=== PATIENT | female | born 1945 | race Caucasian/White ===

== ENCOUNTER 2019-05-30 11:23 | Inpatient (IN) | payer OTHER, BC ==
[~2019-05-30] VITALS: Ht 157.5 cm; Wt 62.6 kg
--- NOTE | 2019-05-30 11:23 | NUR ---
Patient BIBA BLS, transferred to bed 7. RN evaluating patient at bedside.
[2019-05-30 11:25] VITALS: BP 180/100
--- NOTE | 2019-05-30 11:39 | NUR ---
PT BIBA FROM URGENT CARE DUE TO BUE AND BLE TREMORS ALONG WITH GENERALIZED WEAKNESS. BS 131 AT THIS TIME. DENIES CP OR SOB. ABD DISTENDED, FIRM, PT STATES "I NEED DRAINAGE SOON". VSS. ER TO SEE PT. MEDHX:CIRRHOSIS, DM
--- NOTE | 2019-05-30 12:20 | NUR ---
Dr. Astudillo is evaluating the patient at bedside.
[2019-05-30 12:39] LABS: BASOPHILS # (AUTO) 0.1 K/uL (0.00-0.22); BASOPHILS % (AUTO) 1.1 % (0.0-2.0); EOSINOPHILS # (AUTO) 0.2 K/uL (0-0.4); HEMATOCRIT 38.3 % (36-48); HEMOGLOBIN 12.4 g/dL (12.0-16.0); LYMPHOCYTES # (AUTO) 0.9 K/uL (2.5-16.5); LYMPHOCYTES % (AUTO) 20.6 % (20.5-51.1); MEAN CORPUSCULAR HEMOGLOBIN 31 pg (27-31); MEAN CORPUSCULAR HGB CONC 33 g/dL (33-37); MEAN CORPUSCULAR VOLUME 96.7 fL (80-94); MONOCYTES # (AUTO) 0.6 K/uL (0.8-1.0); MONOCYTES % (AUTO) 13.6 % (1.7-9.3); NEUTROPHILS # (AUTO) 2.8 K/uL (1.8-7.7); NEUTROPHILS % (AUTO) 60.7 % (42.2-75.2); PLATELET COUNT (AUTO) 114 K/uL (140-450); RED BLOOD CELL COUNT(AUTO) 3.96 MIL/uL (4.20-5.40); RED CELL DISTRIBUTION WIDTH 15.7 % (11.6-13.7); WHITE BLOOD COUNT (AUTO) 4.6 K/uL (4.8-10.8)
[2019-05-30 12:58] LABS: ALBUMIN 1.8 g/dL (3.4-5.0); ASPARTATE AMINOTRANSFERASE 26 U/L (15-37); CHLORIDE 104 mmol/L (98-107); CREATININE 1.1 mg/dL (0.6-1.3); GLUCOSE 116 mg/dL (74-106); POTASSIUM 3.8 mmol/L (3.5-5.1); SODIUM SERUM 137 mmol/L (136-145); TOTAL BILIRUBIN 1.8 mg/dL (0.0-1.0); UREA NITROGEN, BLOOD 15 mg/dL (7-18)
[2019-05-30 13:15] LABS: ANION GAP 6.8 (8-16)
--- NOTE | 2019-05-30 13:30 | NUR ---
Dr. Astudillo is re-evaluating the patient at bedside.
[2019-05-30] MEDS ORDERED: LACTULOSE 20 GM/30 ML UDC PO ONE (13:35)
--- NOTE | 2019-05-30 16:00 | NUR ---
PT RESTING IN BED, AROUSABLE TO NAME, AAOX4, DAUGHTER AT BEDSIDE, VSS, PT DAUGHTER GOING TO ASSIST PT TO RESTROOM.
--- NOTE | 2019-05-30 16:47 | NUR ---
PT DAUGHTER BROUGHT DINNER FOR PT, PER DENIS SANZ OKAY TO EAT.
--- NOTE | 2019-05-30 19:19 | NUR ---
GAVE REPORT TO JOE SANCHEZ
[2019-05-30] MEDS ORDERED: NACL 0.9% 1,000 ML IV SCH (19:44)
[2019-05-30] MEDS ORDERED: ZOLPIDEM 5 MG TAB PO PRN (19:45)
[2019-05-30] MEDS ORDERED: MORPHINE SULFATE 2 MG/ML SYR IVP PRN (19:45)
[2019-05-30] MEDS ORDERED: ONDANSETRON 4 MG/2 ML VIAL IM/IVP PRN (19:45)
[2019-05-30] MEDS ORDERED: ACETAMINOPHEN 325 MG TAB PO PRN (19:45)
[2019-05-30] MEDS ORDERED: HYDROcodone/APAP 5/325 MG 1 TAB TAB PO PRN (19:45)
[2019-05-30] MEDS ORDERED: LORazepam 2 MG/ML VIAL IM/IVP PRN (19:45)
[2019-05-30] MEDS ORDERED: DOCUSATE SODIUM 100 MG GELCAP PO PRN (19:45)
--- NOTE | 2019-05-30 20:16 | NUR ---
Patient will be admitted to care of [facility]. Admited to TELE. Will go to room 107A. Belongings list completed. Report to ARIEL SANCHEZ.
[2019-05-30 20:30] VITALS: BP 122/70
--- NOTE | 2019-05-30 20:30 | NUR ---
RECIEVED PT / THELMA , FROM ER , WITH CC OF TREMORS , BODY WEAKNESS , AAO X4 , TRANSFER TO BED BY 4 PERSON BY MANUAL LIFT , IV SITE INTACT AND PATENT , ADMISSION ASSESSMENT DONE , SKIN INTACT , WITH HX OF BREAST CA , PLAN OF CARE DISCUSSED AND VERBALIZE UNDERSTANDING - CALL LIGHT WITHIN REACH . FALL RISK - ON SAFETY / FALL PRECAUTION PROTOCOL- BED ALARM ON . MRSA SPECIMEN COLLECTED AND SENT TO LAB. WILL CONT. TO MONITOR
[2019-05-30] MEDS ORDERED: DEXTROSE 50% 50 ML SYR IVP PRN (21:05)
[2019-05-30] MEDS ORDERED: INSULIN LISPRO SLIDING SCALE 100 UNITS/ML VIAL SUBQ PRN (21:05)
[2019-05-30 21:59] LABS: MAGNESIUM 1.5 mg/dL (1.8-2.4); PHOSPHORUS 3.1 mg/dL (2.5-4.9); THYROID STIMULATING HORMONE 3.48 uIU/mL (0.34-3.74)
[2019-05-30 22:02] LABS: PROTHROMBIN TIME 14.6 secs (10.8-13.4)
[2019-05-30] MEDS: BLOOD GLUCOSE MONITORING 1 DEV DEV FS SCH (22:09)
[2019-05-30] MEDS ORDERED: SPIR50TA PO (22:42)
[2019-05-30] MEDS ORDERED: FURO-572 PO (22:42)
[2019-05-30] MEDS ORDERED: DOCU-299 PO (22:42)
[2019-05-30] MEDS ORDERED: PROP20TA29 PO (22:42)
[2019-05-30] MEDS ORDERED: LORA10TA19 PO (22:42)
[2019-05-30] MEDS ORDERED: OMEP40EC24 PO (22:42)
[2019-05-30] MEDS ORDERED: EXEM25TA5 PO (22:42)
[2019-05-30] MEDS ORDERED: PROPRANOLOL 20 MG TAB PO SCH (23:00)
[2019-05-30] MEDS ORDERED: SPIRONOLACTONE 50 MG TAB PO SCH (23:00)
[2019-05-31] VITALS: BP 125/60
--- NOTE | 2019-05-31 | NUR ---
STRAIGHT CATH.-DONE ORDERED - PROCEDURE TOLERATED WELL - SPECIMEN SENT TO LAB.
[2019-05-31 00:44] LABS: APPEARANCE,URINE CLEAR (CLEAR); BILIRUBIN,URINE NEGATIVE (NEGATIVE); BLOOD, URINE NEGATIVE (NEGATIVE); COLOR,URINE DARK YELLOW (YELLOW); LEUKOCYTE ESTERASE ,URINE NEGATIVE (NEGATIVE); NITRITE, URINE NEGATIVE (NEGATIVE); PH,URINE 5.5 (5.0-9.0); UGLUCOSE TRACE (NEGATIVE)
[2019-05-31 01:55] LABS: RBC,URINE 0-5 /HPF (0-5); WBC,URINE 0-5 /HPF (0-5)
[2019-05-31 01:56] LABS: HYALINE CASTS, URINE 0-10 /LPF (None Seen)
[2019-05-31] MEDS ORDERED: LORA10TA19 PO (03:02)
[2019-05-31] MEDS ORDERED: EXEM25TA5 PO (03:07)
[2019-05-31 04:00] VITALS: BP 125/67
--- NOTE | 2019-05-31 04:00 | NUR ---
MADE ROUNDS , NO ACUTE DISTRESS NOTED , STILL ON SHAKINESS.
[2019-05-31] MEDS ORDERED: MAGNESIUM OXIDE 400 MG TAB PO SCH (05:00)
--- NOTE | 2019-05-31 06:10 | NUR ---
CT OF HEAD , ABD. PELVIS W/O CONTRASR -DONE.
--- NOTE | 2019-05-31 07:00 | NUR ---
PT ACCIDENTALLY PULL OUT THE IV CANULLA . TRIED 2X BUT FAILED BECAUSE OF SEVERE SHAKINESS.
[2019-05-31 07:19] LABS: BASOPHILS % (AUTO) 0.8 % (0.0-2.0); EOSINOPHILS # (AUTO) 0.2 K/uL (0-0.4); EOSINOPHILS % (AUTO) 3.6 % (0.0-4.0); HEMATOCRIT 37.9 % (36-48); HEMOGLOBIN 12.6 g/dL (12.0-16.0); LYMPHOCYTES # (AUTO) 0.9 K/uL (2.5-16.5); LYMPHOCYTES % (AUTO) 18.4 % (20.5-51.1); MEAN CORPUSCULAR HEMOGLOBIN 32 pg (27-31); MEAN CORPUSCULAR HGB CONC 33 g/dL (33-37); MEAN CORPUSCULAR VOLUME 95.7 fL (80-94); MONOCYTES # (AUTO) 0.5 K/uL (0.8-1.0); MONOCYTES % (AUTO) 10.6 % (1.7-9.3); NEUTROPHILS # (AUTO) 3.2 K/uL (1.8-7.7); NEUTROPHILS % (AUTO) 66.6 % (42.2-75.2); PLATELET COUNT (AUTO) 114 K/uL (140-450); RED BLOOD CELL COUNT(AUTO) 3.96 MIL/uL (4.20-5.40); RED CELL DISTRIBUTION WIDTH 15.4 % (11.6-13.7); WHITE BLOOD COUNT (AUTO) 4.8 K/uL (4.8-10.8)
[2019-05-31] MEDS ORDERED: cefTRIAXone 1,000 MG VIAL ONE (07:22)
[2019-05-31 07:28] LABS: ANION GAP 12.5 (8-16); CARBON DIOXIDE 25.1 mmol/L (21-32); CHLORIDE 102 mmol/L (98-107); GLUCOSE 87 mg/dL (74-106); POTASSIUM 3.6 mmol/L (3.5-5.1); SODIUM SERUM 136 mmol/L (136-145); UREA NITROGEN, BLOOD 14 mg/dL (7-18)
[2019-05-31 07:29] LABS: CHOL/HDL RATIO 6.6 (1-4.5)
[2019-05-31] MEDS ORDERED: metroNIDAZOLE 500 MG/NS PREMIX 100 ML IV SCH (07:30)
--- NOTE | 2019-05-31 07:35 | NUR ---
ENDORSED TO AM FOR IV INSERTION ,LATEST BLOOD SUGAR 86.
--- NOTE | 2019-05-31 07:41 | NUR ---
RECEIVED PT FROM MATERIALS MANAGEMENT SUPERVISOR RN FOR CONTINUITY OF CARE. PT IS AAOX4, COOPERATIVE. PT SKIN IS INTACT. PT ABLE TO WALK BUT UNSTEADY DUE TO SHAKING. PT HAS NO IV ACCESS. MATERIALS MANAGEMENT SUPERVISOR NURSE UNABLE TO INSERT NEW IV. WILL TRY MYSELF. EXPLAINED POC TO PT AND PT VERBALIZED UNDERSTANDING. ALL NEEDS MET. WILL CONTINUE TO ROUND FREQUENTLY ON PT. BED IN LOW POSITION, CALL LIGHT WITHIN REACH.
[2019-05-31 08:00] VITALS: BP 132/56
--- NOTE | 2019-05-31 08:22 | NUR ---
PATIENT HAS BEEN SCREENED AND CATEGORIZED HIGH NUTRITION RISK. PATIENT WILL BE SEEN WITHIN 1-2 DAYS OF ADMISSION. 05/31/19-06/01/[address]
[2019-05-31] MEDS ORDERED: LIDOCAINE/EPI 1% 1:100000 20 ML VIAL INJ ONE (08:30)
[2019-05-31] MEDS: PROPRANOLOL 20 MG TAB PO SCH ×2 (09:00→21:34)
[2019-05-31] MEDS ORDERED: FUROSEMIDE 20 MG TAB PO SCH (09:00)
[2019-05-31] MEDS ORDERED: DOCUSATE SODIUM 100 MG GELCAP PO SCH (09:00)
[2019-05-31] MEDS: SPIRONOLACTONE 50 MG TAB PO SCH ×2 (09:00→21:33)
[2019-05-31] MEDS ORDERED: FUROSEMIDE 20 MG/2 ML VIAL IVP SCH (09:00)
--- NOTE | 2019-05-31 09:20 | NUR ---
PT MORNING MEDS ADMINISTERED. 0700 ABX NOT ADMINISTERED BY PHYSICAL DAMAGE APPRAISER RN DUE TO NO IV ACCESS. I WAS NOT ABLE TO INSERT NEW IV. AWARE AND HE ORDERED PICC LINE INSERTION FOR PT. WAITING FOR INSERTION SO IV MEDS CAN BE ADMINISTERED.
[2019-05-31] MEDS: LORATADINE 10 MG TAB PO SCH (09:47)
[2019-05-31] MEDS: LACTOBACILLUS RHAMNOSUS GG 1 EACH CAP PO SCH (09:48)
--- NOTE | 2019-05-31 11:09 | NUR ---
SPOKE WITH CLEMENT FROM PICC LINE SERVICE. PICC LINE NURSE JAY WILL CALL FOR ETA. ELISHA ASSIGNED MADE AWARE.
--- NOTE | 2019-05-31 11:24 | NUR ---
PT RESTING IN BED. ALL NEEDS MET. PICC LINE NURSE CAN NOT INSERT IV UNTIL 1400. WILL GIVE ABX THERAPY AFTER PICC INSERTION.
[2019-05-31] MEDS: BLOOD GLUCOSE MONITORING 1 DEV DEV FS SCH ×3 (11:30→20:55)
[2019-05-31 12:00] VITALS: BP 98/65
--- NOTE | 2019-05-31 13:24 | NUR ---
PT SLEEPING. WILL CONTINUE TO ROUND FREQUENTLY ON PT. BED IN LOW POSITION, CALL LIGHT WITHIN REACH.
--- NOTE | 2019-05-31 14:43 | NUR ---
05/31/19 RD INITIAL ASSESSMENT COMPLETED PLEASE REFER TO NUTRITION ASSESSMENT UNDER CARE ACTIVITY FOR ESTIMATED NUTRITIONAL NEEDS. 1. RECOMMEND NA2GM, CCHO DIET TOLERATED 2. WILL GIVE DIET EDUCATION ON FOLLOW-UP VISIT FOR CIRRHOSIS 3. RD TO FOLLOW-UP 3-5 DAYS, MODERATE RISK MACO FULLER, RD
[2019-05-31] MEDS ORDERED: ONDA2SOL45 IM/IVP (15:01)
[2019-05-31] MEDS ORDERED: HUMSLIDE SUBQ (15:01)
[2019-05-31] MEDS ORDERED: ZOLP5TAB1 PO (15:01)
[2019-05-31] MEDS ORDERED: ACET-1182 PO (15:01)
[2019-05-31] MEDS ORDERED: LACT10SO11 PO (15:01)
[2019-05-31] MEDS ORDERED: LACT10CA PO (15:01)
[2019-05-31] MEDS ORDERED: D50SYR IVP (15:01)
[2019-05-31] MEDS ORDERED: GLUC-805 FS (15:01)
[2019-05-31] MEDS ORDERED: ACET-9525 PO (15:01)
--- NOTE | 2019-05-31 15:05 | NUR ---
DC PLANNING: Called [facility] and spoke with Yanely clinical coordinator. Per Yanely the pt can stay in patient here in [facility] until discharge. Addendum: 06/01/19 at 1539 by Camryn Monte CM D/C PLANNING PT STABLE TO BE DISCHARGE PER ORDER D/C HOME TODAY
--- NOTE | 2019-05-31 15:14 | NUR ---
Social And Human Services Assistant Note: I called patient's daughter Juliet Vargas , no answer, left message.
--- NOTE | 2019-05-31 15:40 | NUR ---
PICC LINE INSERTED IN PT'S RIGHT UPPER ARM. PT TOLERATED PROCEDURE WELL. WILL CONTINUE TO ROUND FREQUENTLY ON PT. BED IN LOW POSITION, CALL LIGHT WITHIN REACH.
[2019-05-31 16:00] VITALS: BP 96/55
[2019-05-31 16:19] LABS: APPEARANCE,SPUN,BODY FLUID CLEAR (CLEAR); APPEARANCE,UNSPUN,BODY FLUID HAZY (CLEAR); COLOR,BODY FLUID LT YELLOW (LT YELLOW); TOTAL VOLUME,BODY FLUID 3100 mL
[2019-05-31 16:20] LABS: RBC, BODY FLUID 10 /cu. mm.; WBC, BODY FLUID 9 /cu. mm.
[2019-05-31 16:23] LABS: SPECIMENTYPE,BODY FLUID ASCITES
[2019-05-31 16:43] LABS: GLUCOSE,BODY FLUID 110 mg/dL
--- NOTE | 2019-05-31 16:49 | NUR ---
RECEIVED CALL FROM VALERIANO IN PHARMACY FOLLOWING UP ON MY QUESTION ABOUT GIVING PT ABX THAT WERE SCHEDULED FOR EARLY THIS MORNING. PER PHARMACIST, OK TO GIVE 0700 ROCEPHIN AND THEN GIVE 1300 FLAGYL WHEN ROCEPHIN FINISHES. WAS TOLD BY PHARMACIST TO TELL INSIDE UPHOLSTERER TO GIVE 2100 FLAGYL AFTER 2200. WILL ENDORSE TO INSIDE UPHOLSTERER.
[2019-05-31] MEDS: metroNIDAZOLE 500 MG/NS PREMIX 100 ML IV SCH (17:41)
--- NOTE | 2019-05-31 17:46 | NUR ---
PT SLEEPING. WILL CONTINUE TO ROUND FREQUENTLY ON PT. BED IN LOW POSITION, CALL LIGHT WITHIN REACH.
--- NOTE | 2019-05-31 19:26 | NUR ---
ENDORSED PT TO THERMOSTAT REPAIRER FOR CONTINUITY OF CARE. PT IN STABLE CONDITION AT THIS TIME.
--- NOTE | 2019-05-31 19:26 | NUR ---
RECIEVED PT. AAOX4 , NID -O2 SAT. -WNL , WITH DISTENDED ABD. - POST PARACENTESIS TODAY - 1,300 BODY FLUID REMOVED , POST PICC INSERTION TODAY , DENIES ANY PAIN AT THIS TIME , NO SIGNS OF ACUTE DISTRESS NOTED AT THIS TIME. PLAN OF CARE DISCUSSED AND VERBALIZE UNDERSTANDING , ON SAFETY /FALL PRECAUTION PROTOCOL - BED ALARM ON , CALL LIGHT WITHIN REACH . WILL CONT. TO MONITOR.
[2019-05-31 20:00] VITALS: BP 90/60
[2019-05-31] MEDS: FUROSEMIDE 20 MG/2 ML VIAL IVP SCH (21:00)
--- NOTE | 2019-05-31 21:00 | NUR ---
BP 90/60 MMHG - REFER TO CAROLANN - HE SAID GIVE DUE ALDACTONE , INDERAL BUT NOT THE LASIX.
[2019-05-31] MEDS: LACTULOSE 20 GM/30 ML UDC PO SCH (21:34)
--- NOTE | 2019-05-31 22:00 | NUR ---
MADE ROUNDS . BP 90/60 , DENIES ANY DISCOMFORT AT TIME , REMINDS USES OF CALL LIGHT WHENEVER SHE NEEDS HELP /ASSISTANCE - BED ALARM ON . CALL LIGHT WITHIN REACH. WILL CONT. TO MONITOR.
[2019-06-01] VITALS: BP 90/60
--- NOTE | 2019-06-01 00:24 | NUR ---
MOHINI MEJIA ) ENDORSED TO ME MAKE A NOTE WHEN METRONIDAZOLE TO BE GIVEN INSTEAD OF SCAN IT - DUE TO SHE SAID SHE GAVA METRONIDAZOLE TOO LATE ( 5PM ) DUE TO NO IV ITE ACCESS . Addendum: 06/01/19 at 0052 by Yoselyn Arreola RN METRONIDAZOLE 500MG TIV GIVEN PREMIX 100CC RUN FOR 100CC/HR -ITEM WITH SERIAL #[id number]
--- NOTE | 2019-06-01 02:00 | NUR ---
SLEEPING . CHEST . RISE AND FALL EQUALLY . CALL LIGHT WITH IN REACH.
[2019-06-01 04:00] VITALS: BP 111/62
--- NOTE | 2019-06-01 04:00 | NUR ---
PT. SIGNED WAIVER / CONSENT FOR DISCLOSURE OF INFO FROM [facility] . NO SIGNS OF ACUTE DISTRESS NOTED AT THIS TIME - CALL LIGHT WITHIN REACH . WILL CONT. TO MONITOR.
[2019-06-01] MEDS ORDERED: cefTRIAXone 1,000 MG VIAL ONE (05:15)
[2019-06-01] MEDS: BLOOD GLUCOSE MONITORING 1 DEV DEV FS SCH ×3 (06:00→16:47)
[2019-06-01] MEDS ORDERED: ALBUTEROL SULFATE/IPRATROPIU 3 ML SOL IH PRN (06:00)
[2019-06-01] MEDS: metroNIDAZOLE 500 MG/NS PREMIX 100 ML IV SCH (06:55)
--- NOTE | 2019-06-01 06:55 | NUR ---
METRONIDAZOLE 500MG TIV GIVEN . WITH SERIAL #[id number])
[2019-06-01 07:14] LABS: BASOPHILS % (AUTO) 0.7 % (0.0-2.0); EOSINOPHILS # (AUTO) 0.1 K/uL (0-0.4); EOSINOPHILS % (AUTO) 2.8 % (0.0-4.0); HEMATOCRIT 34.2 % (36-48); HEMOGLOBIN 11.3 g/dL (12.0-16.0); LYMPHOCYTES # (AUTO) 0.8 K/uL (2.5-16.5); MEAN CORPUSCULAR HEMOGLOBIN 32 pg (27-31); MEAN CORPUSCULAR HGB CONC 33 g/dL (33-37); MONOCYTES # (AUTO) 0.6 K/uL (0.8-1.0); MONOCYTES % (AUTO) 14.5 % (1.7-9.3); NEUTROPHILS # (AUTO) 2.4 K/uL (1.8-7.7); PLATELET COUNT (AUTO) 91 K/uL (140-450); RED BLOOD CELL COUNT(AUTO) 3.57 MIL/uL (4.20-5.40); RED CELL DISTRIBUTION WIDTH 15.7 % (11.6-13.7); WHITE BLOOD COUNT (AUTO) 3.9 K/uL (4.8-10.8)
[2019-06-01 07:17] LABS: ANION GAP 11.9 (8-16); CHLORIDE 106 mmol/L (98-107); CREATININE 1.2 mg/dL (0.6-1.3); GLUCOSE 127 mg/dL (74-106); POTASSIUM 3.9 mmol/L (3.5-5.1); SODIUM SERUM 138 mmol/L (136-145); UREA NITROGEN, BLOOD 14 mg/dL (7-18)
[2019-06-01 07:18] LABS: MAGNESIUM 1.8 mg/dL (1.8-2.4); PHOSPHORUS 2.9 mg/dL (2.5-4.9)
--- NOTE | 2019-06-01 07:30 | NUR ---
ENDORSED TO AM SHIFT . O2 SAT 93 % TO 94 % WITH LATEST BP 111/63MMHG.
--- NOTE | 2019-06-01 07:35 | NUR ---
RECEIVED PT FROM PREP PERSON NURSE, PT IS ASLEEP AND LYING ON THE BED, RESPIRATION IS EVEN, SATURATING AT 94% ON ROOM AIR, SIDE RAILS ARE UP AND CALL LIGHT WITHIN REACH, BED ALARM ACTIVATED, BED IN LOW POSITION, NO SIGN OF DISTRESS NOTED AND WILL CONTINUE TO MONITOR PT.
[2019-06-01 08:00] VITALS: BP 116/56
[2019-06-01 08:09] LABS: HEPATITIS A ANTIBODY IGM Negative (Negative); HEPATITIS B CORE AB TOTAL Negative (Negative); HEPATITIS B SURFACE ANTIBODY Non Reactive (.); HEPATITIS B SURFACE ANTIGEN Negative (Negative)
[2019-06-01] MEDS: FUROSEMIDE 20 MG/2 ML VIAL IVP SCH (08:36)
[2019-06-01] MEDS: LACTOBACILLUS RHAMNOSUS GG 1 EACH CAP PO SCH (08:37)
[2019-06-01] MEDS: LORATADINE 10 MG TAB PO SCH (08:37)
[2019-06-01] MEDS: SPIRONOLACTONE 50 MG TAB PO SCH (08:38)
[2019-06-01] MEDS: LACTULOSE 20 GM/30 ML UDC PO SCH (08:38)
[2019-06-01] MEDS: PROPRANOLOL 20 MG TAB PO SCH (08:38)
--- NOTE | 2019-06-01 08:38 | NUR ---
PT IS AWAKE AND BP IS 135/77, PULSE IS 88 MANUALLY, ORAL AND IV PUSH MEDICATIONS WERE GIVEN TO MPT AND TOLERATED IT, MEDICAL STUDENT ON THE BEDSIDE DOING ASSESSMENT TO PT NOW. WILL MONITOR PT.
[2019-06-01 12:00] VITALS: BP 154/101
--- NOTE | 2019-06-01 12:20 | NUR ---
PT WAS ASSISTED TO THE BATHROOM NOW AND MADE A BOWEL MOVEMENT, NO SIGN OF DISTRESS NOTED. WILL MONITOR PT.
--- NOTE | 2019-06-01 12:20 | NUR ---
PT WAS TRANSFERRED TO [facility] NOW. HEART MONITOR REMOVED AND GIVEN TO REHAB CARE ASSISTANT.
[2019-06-01] MEDS ORDERED: metroNIDAZOLE 500 MG/NS PREMIX 100 ML IV SCH (15:00)
--- NOTE | 2019-06-01 15:14 | NUR ---
PT WAS GIVEN FLAGYL VIA IVPB, DR. WILLS ON THE BEDSIDE TALKING TO PT.
--- NOTE | 2019-06-01 16:50 | NUR ---
REMOVED RIGHT UPPER ARM MIDLINE IV. PRESSURED APPLIED FOR TWO MINUTES, NO BLEEDING, SITE COVERED WITH GAUZE AND TRANSPARENT DRESSING. EDUCATED PT TO APPLY PRESSURE IF BLEEDING IS NOTED. IV CATHETER INTACT.
--- NOTE | 2019-06-01 17:05 | NUR ---
DISCHARGED PT VIA WHEELCHAIR WITH DAUGHTER, DISCHARGED TEACHINGS AND INSTRUCTIONS GIVEN AND PT VERBALIZED UNDERSTANDING, PICC LINE WAS REMOVED BY ANOTHER RN, AND ARM BAND WAS REMOVED WELL, ,BP IS 134/59. PULSE IS 89. PT DENIES PAIN AND IS STABLE AT THIS TIME.
== END 2019-06-01 17:00 | disposition home or self-care (01) | DRG 432 ==
LOC: MED 11:23 → MTU 19:15
PROVIDERS: ADMIT General Practice; ATTEND General Practice
PROC: 0W9G3ZZ Drainage of Peritoneal Cavity, Percutaneous Approach (ICD-10-PCS; principal; 2019-05-31)
DX: K74.60 Unspecified cirrhosis of liver (principal); E43 Unspecified severe protein-calorie malnutrition; K65.2 Spontaneous bacterial peritonitis; D68.59 Other primary thrombophilia; R18.8 Other ascites; K76.6 Portal hypertension; I85.10 Secondary esophageal varices without bleeding; E11.65 Type 2 diabetes mellitus with hyperglycemia; I10 Essential (primary) hypertension; D70.9 Neutropenia, unspecified; D69.6 Thrombocytopenia, unspecified; R27.8 Other lack of coordination; Z60.2 Problems related to living alone; E83.39 Other disorders of phosphorus metabolism; E83.51 Hypocalcemia; Z68.25 Body mass index [BMI] 25.0-25.9, adult; Z90.49 Acquired absence of other specified parts of digestive tract
CPT/HCPCS: 36415; 49083; 71045; 71250; 76705; 80048; 80053; 81001; 82140; 82945; 82948; 83036; 83615; 83690; 83735; 83880; 84100; 84134; 84155; 84157; 84443; 85025; 85610; 85730; 86704; 86706; 86708; 86709; 86803; 87040; 87070; 87075; 87081; 87186; 87205; 87340; 89051; 93005; 97116; 97161-GP; 97530; 99285; C1751; C1758; J0696; J1940; J2001; J2060; J3490; J7060; Q0092